=== PATIENT | female | born 1965 | race Caucasian/White ===

== ENCOUNTER 2019-08-06 08:50 | Inpatient (IN) | payer OTHER ==
[2019-08-06] VITALS (11 sets, daily range): BP systolic 96–128; BP diastolic 49–79
[~2019-08-06] VITALS: Ht 160 cm; Wt 85.7 kg
--- NOTE | ~2019-08-06 | HC ---
[facility] [place] [address] CONSULTATION Name: LUIS A VILLALPANDO Room #: 349-I ADM IN M.R.#: [id number] Admission: 08/06/19 Attend Phys: Jose Antonio Diallo MD Discharge: Date of : 67 Report #: [id number] THIS REPORT FOR: //name// CC: Jatinder Love FAM unknown Jose Antonio Diallo REASON FOR CONSULTATION: Elevated creatinine. REASON FOR PRESENTATION: Abscess on the buttock. HISTORY OF PRESENT ILLNESS: This is a 53-year-old with past medical history of diabetes mellitus. This seems to be out of control with the most recent hemoglobin A1c of 13.8. She is also known to have been born with 1 kidney. She has not seen a kidney specialist in the past, but was told 3 years ago that she had 1 kidney based on an imaging that was obtained by her primary care physician. She also tells me that she has taken nonsteroidal anti-inflammatory medications for almost 10 years and stopped 3 years ago. She presented with the above-mentioned complaint and was found to have a significant gluteal abscess. Surgical consultation was obtained and this has been drained. The patient's creatinine on presentation was 3.2 and had risen to 3.7. I am being consulted to manage her chronic kidney disease. PAST MEDICAL HISTORY: 1. Diabetes mellitus. 2. Solitary kidney. 3. Hyperlipidemia. 4. Coronary artery disease. 5. Status post bilateral carpal tunnel surgery. 6. Status post bilateral ulnar nerve release. ALLERGIES: None. OUTPATIENT MEDICATIONS: 1. Atorvastatin. 2. Levemir insulin. 3. Gabapentin. FAMILY HISTORY: Her mother was alcoholic. Her dad was diabetic and of coronary artery disease. SOCIAL HISTORY: She is a smoker. She has no children. 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 REVIEW OF SYSTEMS: GENERAL: Significant for fever, chills and weakness. CARDIOVASCULAR: No chest pain or palpitation. [facility] [address] [place] [address] CONS[facility]ATION [facility] Room #: 349-I ADM IN [facility]#: [id number] Admission: 08/06/19 Attend Phys: Jose Antonio Diallo MD Discharge: Date of : 67 Report #: [id number] PULMONARY: No cough or hemoptysis. GASTROINTESTINAL: No nausea or vomiting. GENITOURINARY: No frequency, no urgency. NEUROLOGICAL: As per the history of present illness. SKIN: As per the history of present illness. PHYSICAL EXAMINATION: GENERAL: She is alert and oriented. VITAL SIGNS: Temperature is 37.2, respiratory rate is 24, and blood pressure is 106/59. HEAD AND NECK: No jugular venous distention. CHEST: No crackles. CARDIOVASCULAR: No rub detected. ABDOMEN: Soft and nontender. LOWER EXTREMITIES: No edema. Dressing applied over the right gluteal area. LABORATORY DATA: Reviewed. White blood cell count is 22.3 with significant bands at 16%. Sodium is 137, potassium is 4.4, BUN is 65, and creatinine is 3.7. Magnesium is 1.7. ASSESSMENT, IMPRESSION, AND PLAN: 1. Chronic kidney disease. 2. Solitary kidney. 3. Perirectal abscess. 4. Post-incision and drainage of her rectal abscess. 5. Leukocytosis. 6. I will start the appropriate investigation for the patient's elevated creatinine; however, it does look like that she has lived with a solitary kidney for some time. On top of that, she has been using chronic nonsteroidal anti-inflammatory medications along with poorly controlled diabetes mellitus. 7. Continue with IV fluid. 8. Check vancomycin level. 9. Blood sugar control. 10. Post-incision and drainage of her abscess. 11. We will continue to follow. By: [id number] Margot Dalton MD /nt
[2019-08-06] MEDS ORDERED: HUMALOG100 UNIT/1 SUBQ (08:59)
[2019-08-06] MEDS ORDERED: NEURONTIN100 MG PO (08:59)
[2019-08-06] MEDS ORDERED: LIPITOR 20 MG T20 M1 PO (09:00)
[2019-08-06] MEDS ORDERED: LEVEMIR100 UNIT/2 SUBQ (09:01)
[2019-08-06 09:28] LABS: URINE BILIRUBIN NEGATIVE (Negative); URINE BLOOD 1+ (Negative); URINE CLARITY CLEAR; URINE COLOR YELLOW; URINE GLUCOSE-RANDOM* 3+ (Negative); URINE KETONES NEGATIVE (Negative); URINE LEUKOCYTES-REFLEX NEGATIVE (Negative); URINE NITRITE-REFLEX NEGATIVE (Negative); URINE PROTEIN (DIPSTICK) 1+ (Negative); URINE SPECIFIC GRAVITY 1.015 (1.005-1.035); URINE UROBILINOGEN 0.2 E.U./dl (0.2-1.0)
[2019-08-06 09:30] LABS: ABSOLUTE NEUTROPHILS 17.6 thou/uL (1.4-8.2); BASOPHILS 0.5 % (0.0-2.0); EOSINOPHILS 0.3 % (0.0-3.0); HEMATOCRIT 46.1 % (37.0-47.0); LYMPHOCYTES 6.7 % (24.0-44.0); MCHC 32.4 g/dL (28.0-37.0); MCV 89.3 fL (80.0-100.0); MONOCYTES 4.4 % (1.0-8.0); PLATELET COUNT 308 thou/uL (150-400); POLYS 88.1 % (36.0-66.0); RBC 5.16 mil/uL (4.20-5.00); RDW 15.8 % (10.5-14.5)
[2019-08-06 09:45] LABS: CALCIUM 10.7 mg/dL (8.5-10.1); CREATININE 3.2 mg/dL (0.6-1.0); POTASSIUM 4.9 mmol/L (3.5-5.1)
[2019-08-06 10:40] LABS: CASTS None Seen /LPF (None Seen); CRYSTALS None Seen /LPF (None Seen); SQUAMOUS >10 Many /LPF (0-3)
[2019-08-06 10:41] LABS: URINE WBC-REFLEX 6-15 Few /HPF (0-5)
[2019-08-06 10:43] LABS: URINE RBC 0-2 Rare /HPF (0-2); YEAST-REFLEX Present (None Seen)
[2019-08-06 12:14] LABS: CHOLESTEROL 86 mg/dL (<200); HDL CHOLESTEROL 24 mg/dL (>40); LDL CHOLESTEROL 39 mg/dL (<100); TC:HDL 3.6 Ratio (Not establshd); TRIGLYCERIDE 118 mg/dL (<150); VLDL 24 mg/dL (<40)
[2019-08-07 00:07] LABS: GLYCOHEMOGLOBIN (HGB A1C) 13.8 % (4.8-5.6)
--- NOTE | 2019-08-07 00:58 | NUR ---
PATIENT WAS A NEW ADMISSION TO THE UNIT TODAY SHORTLY AFTER SHIFT CHANGE. SHE ARRIVED VIA BALDO BED FROM POST OP. PATIENT IS ALERT AND ORIENTED AND ABLE TO PARTICIPATE IN CARE. INSULIN GTT STARTED BEFORE HER ARRIVAL HERE. SURGICAL WOUND REMAINS CLEAN, DRY, AND INTACT. PATIENTS VITAL SIGNS REMAIN STABLE. PATIENT IS ON LOW LEVEL OXYGEN WITH NO PROBLEMS BREATHING EVIDENCED BY ASSESSMENT AND SPOT OXYGENATION CHECKS. NURSE TO CLOSELY MONITOR BLOOD PRESSURE/BREATHING STATUS/PAIN AND TITRATE GTT ACCORDINGLY. PATIENT ADMISSION COMPLETED WITH CARE PLAN INITIATED.
[2019-08-07 01:52] LABS: URINE BILIRUBIN NEGATIVE (Negative); URINE BLOOD 3+ (Negative); URINE CLARITY CLOUDY; URINE COLOR YELLOW; URINE GLUCOSE-RANDOM* 3+ (Negative); URINE KETONES NEGATIVE (Negative); URINE LEUKOCYTES 1+ (Negative); URINE NITRITE NEGATIVE (Negative); URINE PROTEIN (DIPSTICK) 2+ (Negative); URINE UROBILINOGEN 0.2 E.U./dl (0.2-1.0)
[2019-08-07 02:14] VITALS: BP 106/56
[2019-08-07 02:21] LABS: SQUAMOUS 0-3 Few /LPF (0-3); URINE WBC 6-15 Few /HPF (0-5)
[2019-08-07 02:22] LABS: CASTS None Seen /LPF (None Seen); CRYSTALS None Seen /LPF (None Seen); MUCUS 0-3 Light strn/LPF (None Seen); URINE RBC >20 Many /HPF (0-2); YEAST Present (None Seen)
[2019-08-07 05:01] VITALS: BP 108/56
--- NOTE | 2019-08-07 05:33 | NUR ---
PATIENT IS PROGRESSING SLOWLY IN HER CARE PLAN. VITAL SIGNS STABLE WITH PATIENT HAVING NO COMPLAINTS OF NAUSEA. PATIENT DID COMPLAIN OF PAIN IN RIGHT BUTTOCK SURGICAL SITE WHICH WAS MANAGED EFFECTIVELY THROUGH MEDICATION. FULLY ALERT AND ORIENTED, PATIENT WAS ABLE TO CALL FOR NEEDS AND PARTICIPATE IN CARE. INSULIN GTT TO GOOD AFFECT, WITH HOURLY BLOOD SUGARS TAKEN PER PROTOCOL. PATIENT WAS ABLE TO TRANSFER TO BEDSIDE COMMODE WITH ASSISTANCE INCIDENT FREE. SHE IS CONSIDERED A HIGH FALL RISK.
[2019-08-07 07:07] LABS: HEMATOCRIT 36.6 % (37.0-47.0); MCH 28.1 pg (26.0-34.0); MCHC 31.8 g/dL (28.0-37.0); MCV 88.4 fL (80.0-100.0); RBC 4.14 mil/uL (4.20-5.00); RDW 15.5 % (10.5-14.5); WBC 22.3 thou/uL (4.0-11.0)
[2019-08-07 07:11] LABS: HEMOGLOBIN 11.6 gm/dL (12.0-15.0); PLATELET COUNT 230 thou/uL (150-400)
[2019-08-07 07:15] VITALS: BP 106/59
[2019-08-07 08:08] LABS: ALBUMIN 1.7 g/dL (3.4-5.0); CALCIUM 8.7 mg/dL (8.5-10.1); CREATININE 3.7 mg/dL (0.6-1.0); PHOSPHORUS 4.1 mg/dL (2.5-4.9); POTASSIUM 4.4 mmol/L (3.5-5.1)
[2019-08-07 08:16] LABS: ABSOLUTE NEUTROPHILS 19.4 thou/uL (1.4-8.2); PLATELET ESTIMATE NORMAL
[2019-08-07 08:17] LABS: ANISOCYTOSIS SLIGHT
--- NOTE | 2019-08-07 08:50 | HC ---
[facility] [place] [address] CONSULTATION Name: LUIS A VILLALPANDO Room #: 349-I ADM IN M.R.#: [id number] Admission: 08/06/19 Attend Phys: Jose Antonio Diallo MD Discharge: Date of : 67 Report #: [id number] THIS REPORT FOR: //name// CC: Jatinder Love FAM unknown Jose Antonio Diallo DATE OF SERVICE: 08/06/2019 ENDOCRINE CONSULTATION NOTE CONSULTING PHYSICIAN: Dr. Nishi Bertrand. REASON FOR CONSULTATION: Severe hyperglycemia, uncontrolled type 2 diabetes mellitus. HISTORY OF PRESENT ILLNESS: This is a 53-year-old female patient whose medical background is significant for type 2 diabetes mellitus as well as chronic kidney disease, who presented today with ongoing difficulties relating to a right buttock abscess that she has suffered with worsening pain, fever and chills over the past 3 weeks. She notes that she had it drained in some capacity 2 weeks ago and had been placed on an antibiotic course, but then the issues recurred and persisted at worse grade to where she presented here. The patient had diabetes mellitus for over 10 years, and is currently maintained on a regimen of Levemir insulin 50 units q.p.m. and Humalog insulin 20 units t.i.d. a.c. She is not currently on any oral antidiabetic agents and explains that these were stopped due to her progressive kidney dysfunction. She has not followed with Nephrology, but notes that they would see her every time she is in the hospital and that she was told she might need dialysis. The patient has peripheral neuropathy as well and takes gabapentin for that. She is not aware of difficulties pertaining to diabetic retinopathy. The patient does have a history of CAD and is status post [place]. She is also hyperlipidemic and is maintained on atorvastatin therapy. REVIEW OF SYSTEMS: CONSTITUTIONAL: Fever and chills, but not body weight changes. She had worsening appetite. HEENT: Negative for sinus pain, ear drainage. PULMONARY: Occasional shortness of breath and cough, but no hemoptysis. CARDIAC: No major difficulties with chest pain, palpitations, but she has intermittent lower extremity swelling. GASTROINTESTINAL: Abdominal discomfort, occasional nausea, constipation. NEUROLOGY: Negative for loss of consciousness, seizure activity, major frequent headaches, but noted for baseline issues with diabetic neuropathy. SKIN: Noted for right buttock abscess associated with pain and induration as [facility] [address] [place] [address] CONSULTATION Name: [facility] Room #: 349-I ADM IN M.R.#: [id number] Admission: 08/06/19 Attend Phys: Jose Antonio Diallo MD Discharge: Date of : 67 Report #: [id number] noted above. PSYCHIATRIC: Somewhat dysphoric mood and anxiety, occasional sleep difficulties. Otherwise, review of systems was noncontributory other than those mentioned in the HPI. PAST MEDICAL HISTORY: 1. Type 2 diabetes mellitus. 2. Diabetic nephropathy. 3. Advanced chronic kidney disease. 4. Peripheral diabetic neuropathy. 5. Coronary artery disease, status post [place]. 6. Hyperlipidemia. ALLERGIES: No known drug allergies. ACTIVE OUTPATIENT MEDICATIONS: Include Levemir insulin 50 units at bedtime, Humalog insulin 20 units t.i.d. a.c., gabapentin 100 mg t.i.d., atorvastatin 20 mg at bedtime. FAMILY HISTORY: Noncontributory. SOCIAL HISTORY: The patient smokes more than 2 packs per day. Denies use of alcohol or illicit drugs. She does not have children. PHYSICAL EXAMINATION: GENERAL: female patient who appears in pain, distress, uncomfortable, sleeping on her side. VITAL SIGNS: Blood pressure is 107/57 mmHg, heart rate is 73 beats per minute, respirations 20 per minute, temperature 36.9 degrees. CONSTITUTIONAL: The patient appears uncomfortable, in pain, lying on her side. HEENT: Anicteric sclerae. Intact extraocular motions. NECK: Supple without JVD, carotid bruits or lymphadenopathy. I do not appreciate thyromegaly. CHEST: Noted for moderate air entry bilaterally with scattered rales, rhonchi bilaterally, but no crackles. HEART: Regular rate and rhythm without murmurs or gallops. ABDOMEN: Soft and lax. No guarding. Active bowel sounds. EXTREMITIES: Lower extremity exam, trace ankle edema. No skin breaks, ulcerations. Sensation to light touch is slightly diminished. NEUROLOGIC: Awake, alert and oriented to time, place and person. The remainder of her examination is nonfocal other than for sensory deficits. PSYCHIATRIC: Pleasant, appropriate, interactive, appears in pain. LABORATORY RESULTS: Blood glucose on arrival was reportedly more than 500 mg/dL, recorded by blood draw at 561 mg/dL; her followup blood glucose after IV [facility] [address] [place] [address] CONSULTATION Name: [facility] Room #: 349-I ADM IN M.R.#: [id number] Admission: 08/06/19 Attend Phys: Jose Antonio Diallo MD Discharge: Date of : 67 Report #: [id number] insulin was 390 mg/dL. Otherwise, sodium 132, potassium 4.9, chloride 98, CO2 of 21, anion gap 13, BUN 58, creatinine 3.2, glucose 561, calcium 10.7, EGFR 15, lactic acid 2.0. White blood count 20, hemoglobin 15, hematocrit 46.1, platelets 308. Hemoglobin A1c was ordered and is pending. ASSESSMENT AND PLAN: 1. Type 2 diabetes mellitus. As noted above, the patient presented in severe hyperglycemia under conditions of cellulitis, pain and stress. However, from my conversation with her, it appears that she has indeed been poorly controlled at baseline as well. Hemoglobin A1c is currently pending and will shed more light on her overall glycemic outlook over the past few months. The patient is being planned for an I and D procedure under general anesthesia by Dr. Love. I agree with his desire to have her blood glucose values as well controlled as possible preoperatively for the best results possible. That said, I would start the patient on IV insulin. She had already received 1 intravenous dose of insulin at 10 units in the ER and had improved her blood glucose significantly since then. I would like to start her on IV insulin at a starting rate of 5 units of insulin per hour with hourly monitoring and further rate adjustments based on her blood glucose values. Once the patient is postoperative and is safely stable, she will be transitioned to subcutaneous insulin as per her recorded insulin needs. The patient was counseled about the importance of achieving and maintaining adequate glycemic control in order to prevent short term and long term care administrator diabetic complications, which she seems to understand well. 2. Coronary artery disease. The patient has had a myocardial infarction in the past. I stressed the importance of adequate blood glucose, blood pressure and lipid control in order to prevent such occurrences in the future. 3. Hyperlipidemia. The patient is maintained on lipid-lowering therapy in the form of atorvastatin 20 mg daily. This is to continue. I will obtain a lipid panel to assess the adequacy of this regimen. I certainly appreciate this consultation by Dr. Bertrand. <ELECTRONICALLY SIGNED> By: Mady Carlson MD 08/07/19 0850 [id number] [id number] Mady Carlson MD /nt
[2019-08-07 11:19] LABS: URINE BILIRUBIN NEGATIVE (Negative); URINE BLOOD 2+ (Negative); URINE CLARITY CLOUDY; URINE COLOR YELLOW; URINE GLUCOSE-RANDOM* 2+ (Negative); URINE KETONES NEGATIVE (Negative); URINE LEUKOCYTES 2+ (Negative); URINE NITRITE NEGATIVE (Negative); URINE PROTEIN (DIPSTICK) 2+ (Negative); URINE UROBILINOGEN 0.2 E.U./dl (0.2-1.0)
[2019-08-07 11:28] LABS: CASTS None Seen /LPF (None Seen); CRYSTALS None Seen /LPF (None Seen); SQUAMOUS 0-3 Few /LPF (0-3); URINE RBC >20 Many /HPF (0-2); URINE WBC 6-15 Few /HPF (0-5)
[2019-08-07 11:29] LABS: BACTERIA 1-9 Few /HPF (None Seen)
[2019-08-07 14:24] VITALS: BP 106/59
--- NOTE | 2019-08-07 15:38 | NUR ---
PT REPORTS SHARP INTERMITTENT PAIN TO PERIRECTAL SITES...MEDICATED WITH OXY IR AND TYLENOL WITH FAIRLY GOOD RELIEF OBTAINED..
[2019-08-07 16:58] VITALS: BP 98/55
[2019-08-07 19:13] VITALS: BP 104/61
[2019-08-08 03:49] VITALS: BP 142/79
--- NOTE | 2019-08-08 04:12 | NUR ---
ASSUMED CARE OF PT AT 1900. A&Ox4, COOPERATIVE. VS STABLE. DRESSING CHANGE AND PACKING COMPLETED IN BOTH PERIRECTAL AND GROIN AT START OF SHIFT W/ DAY RN. TOLERATED WITH MODERATE PAIN, MEDS GIVEN W/ PARTIAL RELIEF. PT WAS ABLE TO REST BUT WOKE AT 0345 IN TEARS RATING PAIN 9/10, MEDS GIVEN AGAIN W/ PARTIAL RELIEF. O2 SAT'S WNL ON RA. GLUCOSE WAS 226 AT 0, 10U PER SS GIVEN. CURRENTLY RESTING. PROGRESSING TOWARDS POC GOALS.
[2019-08-08 05:42] LABS: HEMATOCRIT 35.8 % (37.0-47.0); HEMOGLOBIN 11.3 gm/dL (12.0-15.0); MCH 28.1 pg (26.0-34.0); MCHC 31.4 g/dL (28.0-37.0); MCV 89.5 fL (80.0-100.0); RDW 15.7 % (10.5-14.5); WBC 15.7 thou/uL (4.0-11.0)
[2019-08-08 06:17] LABS: ALBUMIN 1.8 g/dL (3.4-5.0); CALCIUM 8.2 mg/dL (8.5-10.1); CREATININE 4.3 mg/dL (0.6-1.0); PHOSPHORUS 4.9 mg/dL (2.5-4.9); POTASSIUM 4.7 mmol/L (3.5-5.1)
[2019-08-08 07:11] VITALS: BP 130/77
--- NOTE | 2019-08-08 15:30 | NUR ---
Case opened to follow for dc planning. [employer] visited with the pt at bedside. She is a&ox4 and was independent with gait and adl's prior to admission. She and her spouse have seperated and may be ;however they remain very good friends and supports for each other. She lives in a friends basement with 12 steps down. 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 Her spouse provides her transportation. She smokes 2 packs a day. She utilizes [facility] and gets her insulin through one of their programs with pickup at her local [employer]. She reports that she helps her spouse setup his meds and has done iv atb before as well as wound care. She feels he will be able to help her with wound care and she can f/u with [facility] as recommended. [facility] referral initiated and lyssa application discussed. Will follow along and help the pt with scripts at [facility]. Awaiting imput from ID regarding her antibiotic needs. She is currently on IV zosyn and vanco. Ratliff placed today d/t urinary retention. The pt reports she does have a cane and walker if needed. She does not check her blood sugar often but states her spouse can do that. CM role introduced. Will follow along to assist with scripts and possible IV atb at [facility].
--- NOTE | 2019-08-08 16:02 | NUR ---
PATIENT WOUND CARE PERFORMED PER ORDERS. PATIENT URINATING SMALL AMOUNTS FREQUENTLY. ABDOMEN WAS DISTENDED, BLADDER SCAN PERFORMED PER DR. ROWE INSTRUCTIONS. PT FOUND TO HAVE >1L IN BLADDER, ABLE TO VOID ONLY 200ML POST SCAN. REPORTED TO DR. ROWE, AGUILERA PLACED PER PROVIDER ORDER. PATIENT URINE OUTPUT INCREASED POST AGUILERA PLACEMENT. PATIENT REPORTS PAIN PARTIALLY MANAGED WITH MEDS. WOUND CARE PROVIDER EVALUATED PATIENT WOUNDS AND ORDERS PLACED FOR TOPICAL MEDICATION. FALL PRECAUTIONS IN PLACE, PATIENT CALLS FOR ASSISTANCE. UP WITH MODERATE ASSIST TO BEDSIDE COMMODE.
--- NOTE | 2019-08-08 16:55 | NUR ---
WOUND CONSULT; ROUNDING WITH DR CHARLES. I WAS NOT ABLE TO ASSESS THE WOUNDS,BUT DR CHARLES WAS. SEE DR CHARLES'S NOTE AND ORDERS...NOTING FOLLOWS
[2019-08-08 16:57] VITALS: BP 114/60
[2019-08-08 19:42] VITALS: BP 122/68
--- NOTE | 2019-08-08 22:26 | HC ---
[facility] [place] [address] CONSULTATION Name: LUIS A VILLALPANDO Room #: 349-I ADM IN M.R.#: [id number] Admission: 08/06/19 Attend Phys: Jose Antonio Diallo MD Discharge: Date of : 67 Report #: [id number] THIS REPORT FOR: //name// CC: Jatinder Love FAM unknown Jose Antonio Diallo DATE OF SERVICE: 08/07/2019 INFECTIOUS DISEASE CONSULTATION. REASON FOR CONSULTATION: I was asked to evaluate concerning perirectal abscess, right groin abscess in the setting of diabetes. HISTORY OF PRESENT ILLNESS: A 53-year-old with solitary kidney, chronic kidney disease, diabetes, tobacco use, who developed a right groin abscess several weeks ago. Seen in the Emergency Room with incision and drainage performed, placed on oral antibiotic. Did not improve. Several weeks ago developed a right buttock wound abscess that required incision and drainage in the Emergency Room. Placed on doxycycline. Did not improve. Had increased pain and swelling. She has had low-grade fever and chills. No nausea, vomiting or diarrhea. Presents now for further evaluation. Taken to surgery by Dr. Jatinder Love yesterday where incision and drainage of perirectal abscess and debridement of necrotic soft tissue. Blood glucose levels have been high. Creatinine remains around 3. White count has been elevated around 20. ALLERGIES: None known. MEDICATIONS: As noted on MAR including vancomycin and Zosyn. Prior to her admission, she was on insulin, gabapentin, Lipitor, doxycycline. PAST MEDICAL HISTORY: Solitary kidney, diabetes. FAMILY HISTORY: Noncontributory. SOCIAL HISTORY: Smoker of cigarettes, minimal alcohol use. REVIEW OF SYSTEMS: A 10-point review of system was negative other than what has been described above. PHYSICAL EXAMINATION: GENERAL: Afebrile and hemodynamically stable. Obese, alert, cooperative, pleasant, in no acute distress. GENITALIA: Right perianal abscess cavity had been incised and drained and is now being packed. She had mild surrounding swelling and tenderness. Mild erythema. Also had a lesion to her right groin, which was packed. No other [facility] [address] [place] [address] CONSULTATION Name: [facility] Room #: 349-I ADM IN M.R.#: [id number] Admission: 08/06/19 Attend Phys: Jose Antonio Diallo MD Discharge: Date of : 67 Report #: [id number] vulvar lesions. EYES: Without scleral icterus. MOUTH: Without mucositis. NECK: No adenopathy palpable. LUNGS: Clear. HEART: Regular, without murmur, gallop or rub. ABDOMEN: Soft, nontender, no hepatosplenomegaly or mass. EXTREMITIES: Without clubbing, cyanosis or edema. NECK: Without swelling, adenopathy or thyromegaly. NEUROLOGIC: Cranial nerves were intact. Strength in upper and lower extremities was normal and symmetric. Decreased sensation in her toes bilaterally. PSYCHIATRIC: Mood was normal. LABORATORY STUDIES: Reviewed, noting creatinine 3.7. Hemoglobin 11.6, WBC 22.3, 16% bands. Urinalysis, many rbc's, a few wbc's, yeast present. Cultures of blood and abscess cavity currently pending. CT of the pelvis reviewed. IMPRESSION: A 53-year-old diabetic with right gluteal perirectal abscess, suspecting a polymicrobial growth. She has a fair amount of surrounding tissue damage. Also, has a lesion to her right groin, which is being packed. She has chronic kidney disease and a solitary kidney along with diabetes and tobacco use. RECOMMENDATIONS: Continue combination IV antibiotic therapy. Await culture results. Continue wound care and diabetic management. Duration and final choice of antibiotics will depend on culture results. <ELECTRONICALLY SIGNED> By: Kai Malcolm MD 08/08/19 2226 [id number] Kai Malcolm MD /nt
[2019-08-09 03:18] VITALS: BP 151/86
[2019-08-09 05:45] LABS: HEMATOCRIT 34.4 % (37.0-47.0); HEMOGLOBIN 11.1 gm/dL (12.0-15.0); MCH 28.7 pg (26.0-34.0); MCHC 32.4 g/dL (28.0-37.0); MCV 88.4 fL (80.0-100.0); RBC 3.89 mil/uL (4.20-5.00); RDW 15.6 % (10.5-14.5); WBC 11.3 thou/uL (4.0-11.0)
[2019-08-09 06:02] LABS: ALBUMIN 1.7 g/dL (3.4-5.0); CALCIUM 8.8 mg/dL (8.5-10.1); CREATININE 3.7 mg/dL (0.6-1.0); PHOSPHORUS 4.7 mg/dL (2.5-4.9); POTASSIUM 4.5 mmol/L (3.5-5.1)
--- NOTE | 2019-08-09 06:16 | NUR ---
ASSUMED CARE OF PT AT 1900. A&Ox4. VS STABLE, ST 103-105 ON TELEMETRY. C/O PAIN 8 TIMES OVER NOC WITH MORE PAIN THAN PREVIOUS NOC. PT RATED PAIN 10.5/10. PT C/O PAIN WITH ANY MOVEMENTS INCLUDING WHEN AGUILERA BAG WAS MOVED AND WHEN HER HAIR WAS MOVED. SHE WAS ALSO WEAKER THAN PREVIOUS NOC AND COULD NOT BLOCK SORTER HER OWN WATER MUG TONIGHT. DRESSING CHANGED PRN OVER PERIRECTAL WOUND. CONTINUES TO HAVE MODERATE AMOUNT OF BROWN-GREEN[place] DRAINAGE. AGUILERA CATH PATENT, MORE UOP DOCUMENTED. PT WAS AWAKE MOST OF THIS SHIFT. SHE SLEPT FOR 1 HOUR AROUND MIDNIGHT AND HAS BEEN SLEEPING NOW FOR 1 HOUR. SLOW PROGRESSION TOWARDS POC GOALS. WILL CONTINUE TO PROVIDE CARE AND MONITOR.
[2019-08-09 07:19] VITALS: BP 133/82
--- NOTE | 2019-08-09 10:30 | NUR ---
WOUND CARE NOTE; DR GOMEZ HERE EARLIER THIS AM, DR REMOVED PACKING FROM BUTTOCK AND GROIN WOUND, LARGE AMT SEROSANGUINEOUS TANNISH DRAINAGE ON ABD PAD, WOUND CARE PREFORMED W/ ASSIST OF SHEET FINISHERANA MEZA, LIDOCAINE 4% ~10CC INSTILLED IN PERIRECTAL WOUND PRIOR TO WOUND CARE, PT STATES MUCH LESS PAIN W/ USE OF LIDOCAINE, STATES MINIMAL TO NO PAIN WHEN REMOVING PACKING, PAIN MORE WHEN WOUND REPACKED, SOME YELLOW SLOUGH IN PERIRECTAL WOUND, REDDISH PINK VIABLE TISSUE PRESENT ALSO, REPACKED W/ 1/4% ST [place]AK[place], COVERED W/ ABD PAD AND DISPOSABLE PANTIES APPLIED PT STATES TAPE ON SKIN IRRITATING, NO PAIN W/ GROIN WOUND, WOUND PINK, VIABLE TISSUE, HEALING RECOMMENDATIONS CONT WOUND CARE ORDERED, SUGGEST INSTILLING LIDOCAINE 15 MIN PRIOR TO PERIRECTAL WOUND CARE, AND USE DISPOSABLE PANTIES TO HOLD DRSG IN PLACE, SHEET FINISHER AWARE
--- NOTE | 2019-08-09 12:57 | HC ---
[facility] [place] [address] CONSULTATION Name: LUIS A VILLALPANDO Room #: 349-I ADM IN .R.#: [id number] Admission: 08/06/19 Attend Phys: Jose Antonio Diallo MD Discharge: Date of : 67 Report #: [id number] THIS REPORT FOR: //name// CC: Jatinder Love FAM unknown Jose Antonio Diallo DATE OF SERVICE: 08/07/2019 CHIEF COMPLAINT: Perirectal abscess. HISTORY OF PRESENT ILLNESS: This is a 53-year-old female patient who was admitted through the Emergency Department. She was originally seen at [facility] for a boil on her buttocks. She was treated with antibiotics, it worsened. She has presented here. She has had incision and drainage performed by Dr. Love. I have been asked to see her with regard to wound care. The patient states that she has a history of chronic kidney disease and uncontrolled diabetes. She has no insurance and has not been able to afford medications and goes to [facility] for medications. PAST MEDICAL HISTORY: Positive for diabetes mellitus, chronic renal insufficiency, asthma, hyperlipidemia, history of prior PR and single kidney since . ALLERGIES: No known drug allergies. MEDICATIONS: Insulin, Humalog, gabapentin, atorvastatin, and Levemir. SOCIAL HISTORY: The patient admits to occasional alcohol use. She smokes 2-1/2 packs of cigarettes per day for 40 years, currently an everyday smoker. She is , accompanied by her . FAMILY HISTORY: Noncontributory. REVIEW OF SYSTEMS: CONSTITUTIONAL: The patient denies fever, chills, or weight loss. ENT: The patient denies earache, nasal drainage or sore throat. EYES: The patient denies visual changes, redness, or drainage. CARDIOVASCULAR: The patient denies chest pain, palpitations or diaphoresis. PULMONARY: The patient denies cough or shortness of breath. GASTROINTESTINAL: The patient denies nausea, vomiting, diarrhea or abdominal pain. ORTHOPEDIC: The patient does note pain in her groin area and perirectal region. PSYCHIATRIC: The patient denies anxiety, irritability or depression. ENDOCRINE: The patient denies heat or cold intolerance, polydipsia, polyphagia, polyuria. [facility] [address] [place] [address] CONSULTATION Name: [facility] Room #: 349-I ADM IN M.R.#: [id number] Admission: 08/06/19 Attend Phys: Jose Antonio Diallo MD Discharge: Date of : 67 Report #: [id number] Other systems in a 14-point review of systems are negative. PHYSICAL EXAMINATION: VITAL SIGNS: At this time include temperature 98.0, pulse 99, respiratory rate 18, blood pressure 104/61. GENERAL: This is a somewhat chronically ill-appearing female patient, who appears to be in minimal distress. HEENT: Head normocephalic. Nose and throat are clear. NECK: Supple. ABDOMEN: Soft. Bowel sounds present. There is the genitourinary region demonstrates a small abscess cavity in the right inguinal region. It was fairly clean and granulating, minimally tender. There was a larger defect in the right perirectal region, status post incision and drainage. There is some tenderness and some drainage and some odor present. The hernandez and base appear to be clean. NEUROLOGIC: The patient is alert and oriented and appropriate. LABORATORY DATA: Include white blood cell count is 22.3 with a hemoglobin of 11.6, hematocrit of 36.6. Sodium 137, potassium 4.7, chloride 104, CO2 of 17, BUN 69, creatinine 1.3, glucose 272, it was 600 on admission. Albumin is quite low at 1.8. CLINICAL IMPRESSION: 1. Perirectal and a right inguinal abscesses, status post incision and drainage. 2. Uncontrolled diabetes mellitus with hyperglycemia. 3. Hypertension. 4. Hyperlipidemia. 5. Severe protein-calorie malnutrition, albumin 1.8. RECOMMENDATIONS: At this point in time, we will recommend packing the right ischial wound with quarter strength Dakin's moist gauze and covered with ABD twice daily. Recommend iodoform gauze packing to the groin once daily. She will need ongoing antibiotic therapy, nutritional support for wound healing. She will clearly need help with glycemic control. All questions have been answered. I appreciate being asked to see her in consultation. <ELECTRONICALLY SIGNED> By: Erick Segundo MD 08/09/19 [id number] Erick Segundo MD /nt
--- NOTE | 2019-08-09 13:59 | NUR ---
WOUND CARE F/U; ROUNDING WITH DR DONAVAN CHARLES. THE PATIENTS DRESSING WERE CHANGED PRIOR TO OUR ASSESSMENT. THE DRESSINGS ARE CLEAN DRY AND INTACT. THE PATIENT IS COMFORTABLE WITH NO COMPLAINTS OR REQUESTS. VSS TODAY. THE PATIENTS IS PRESENT. DR CHARLES REVIEWED HER POC AND ANSWERED QUESTIONS. CONT. CURRENT WOUND PLAN OF CARE. DISCUSSED WITH STAFF
--- NOTE | 2019-08-09 14:56 | NUR ---
SW reviewed chart and spoke with nursing and attending physician. Pt is slowly progressing towards goals for discharge. Discharge home is anticipated in 1-2 days. SW met with pt at bedside to discuss discharge plan. Pt reports she goes to the [facility] [place]. SW explained that ID will recommend course of abx: IV v. PO. Pt states she has done home IV abx in the past. SW explained that option could be outpatient infusion at [facility]. Pt verbalized understanding. Jenn met with pt. Pt is not eligible for Medicaid. Plan is for pt to discharge home when medically stable. SW is following to assist as needed with discharge planning.
[2019-08-09 16:04] VITALS: BP 130/60
--- NOTE | 2019-08-09 16:37 | NUR ---
Assumed care approx. 0700 this AM. Dressing changes completed with v belt mold assembler and curer this AM. Pt has complained of right shoulder pain and it feeling "/numb" the past [address] Diallo notified and came to assess the issue per patient and patient's request. A shoulder x-ray has been completed with no fracture or dislocation noted, just mild degenerative changes per the x-ray report. Oxycodone and scheduled tylenol given for pain management. Maintenance fluids infusing per orders. Ratliff catheter intact with adequate output. Blood sugar 65 at lunch time this AM due to insulin administration with no breakfast consumption after. After patient drank her ensure, her blood sugar normalized. Pt changed from med-surg tele to med-surg status-cardiac rehab nurse dc'd. No other new acute changes this shift. Pt slowly progressing toward plan of care goals.
[2019-08-09 17:08] LABS: COMPLEMENT-C4 30 mg/dL (14-44)
[2019-08-09 19:12] VITALS: BP 144/76
[2019-08-09 23:07] LABS: COMPLEMENT-C3 126 mg/dL (82-167)
[2019-08-10 03:11] VITALS: BP 159/89
--- NOTE | 2019-08-10 05:16 | NUR ---
PATIENT IS ALERT AND ORIENTED. PATIENT IS SBA. PATIENTS DRESSING WAS CHANGED TWICE THIS SHIFT. PATIENT IS ON ROOM AIR. PAIN IS CONTROLLED WITH PAIN MEDICAITON. MIKEL HAS A AGUILERA. PATIENT IS ACHS ACCUCHECKS. PATIENTS LBM WAS THE 9TH. PATIENT IS RESTING COMFORTABLY IN BED. WCM.
[2019-08-10 05:47] LABS: ALBUMIN 1.8 g/dL (3.4-5.0); CALCIUM 8.7 mg/dL (8.5-10.1); CREATININE 3.3 mg/dL (0.6-1.0); PHOSPHORUS 4.7 mg/dL (2.5-4.9); POTASSIUM 4.8 mmol/L (3.5-5.1)
[2019-08-10 05:52] LABS: HEMATOCRIT 34.2 % (37.0-47.0); HEMOGLOBIN 11.2 gm/dL (12.0-15.0); MCH 29.1 pg (26.0-34.0); MCHC 32.8 g/dL (28.0-37.0); MCV 88.7 fL (80.0-100.0); RBC 3.86 mil/uL (4.20-5.00); RDW 15.8 % (10.5-14.5); WBC 8.3 thou/uL (4.0-11.0)
[2019-08-10 07:42] VITALS: BP 150/87
[2019-08-10] MEDS ORDERED: FLOMAX0.4 MG PO (12:24)
[2019-08-10] MEDS ORDERED: AUGMENTIN 500-1 EACH PO (12:24)
[2019-08-10] MEDS ORDERED: OXYCODONE HCL 55 MG PO (12:27)
[2019-08-10] MEDS ORDERED: SODIUM BICARBO650 M3 PO (12:28)
[2019-08-10] MEDS ORDERED: LANTUS SUBQ (12:29)
[2019-08-10] MEDS ORDERED: HUMALOG100 UNIT/1 SUBQ (12:30)
[2019-08-10 12:36] VITALS: BP 150/87
[2019-08-10 14:11] VITALS: BP 150/87
--- NOTE | 2019-08-10 14:13 | NUR ---
DISCHARGE NOTE: SW reviewed chart and spoke with nursing and attending physician. Pt is requesting to discharge home today. Discharge orders written. Pt and s/o checked on cost of medications at [facility] and meds were over $600. Pt asked for SW to vouch for meds in [facility] outpatient pharmacy. Pt told nursing that she has wound care supplies. SW met with pt and s/o at bedside. Pt now stating that she will have her meds filled at [facility]. All meds except her insulin. SW offered to fill insulin script at [facility]. Pt declines stating she does not want to wait. SW offered to arrange [facility] visit if [facility] is able to accept. Pt and s/o agreeable. SW encouraged pt to follow up [place] [facility] Pt's s/o to provide transportation home. search planner to fax referral to [facility]. KAY notified liaison of new referral and request for [facility] visit. Awaiting response at this time. No additional SW needs identified at this time, but is available to assist should needs arise.
--- NOTE | 2019-08-10 14:13 | NUR ---
PATIENT REFERRAL FAXED TO [facility] FOR POSSIBLE WOUND CARE KIERRA VISITS. CALL PLACED TO [facility] LIAISON TO NOTIFY PER UNIT SW. FOLLOWING.
--- NOTE | 2019-08-10 14:24 | NUR ---
PT WOUND DRESSING COMPLETED. AGUILERA CATHETER REMOVED. IV REMOVED. DISCHARGE INSTRUCTION AND WOUND EDUCATION DONE WITH PT AND . PT BELONGINGS WITH PT. PT LEFT VIA WHEELCHAIR WITH DIRECTOR OF CATERING. DRIVING HER HOME.
== END 2019-08-10 14:20 | disposition home or self-care (01) | DRG 853 ==
LOC: ER 08:50 → 3W 10:48 → EROBS 10:48 → 4S 16:29 → 3W 17:05
PROVIDERS: Emergency Medicine; Hospitalist; Internal Medicine; Internal Medicine Nephrology; Nurse Practitioner; ADMIT Hospitalist
PROC: 0JB90ZZ Excision of Buttock Subcutaneous Tissue and Fascia, Open Approach (ICD-10-PCS; principal; 2019-08-06)
DX: A41.9 Sepsis, unspecified organism (principal); E43 Unspecified severe protein-calorie malnutrition; L02.31 Cutaneous abscess of buttock; N17.9 Acute kidney failure, unspecified; L02.214 Cutaneous abscess of groin; N39.0 Urinary tract infection, site not specified; N18.9 Chronic kidney disease, unspecified; E11.65 Type 2 diabetes mellitus with hyperglycemia; E78.5 Hyperlipidemia, unspecified; F17.210 Nicotine dependence, cigarettes, uncomplicated; J45.909 Unspecified asthma, uncomplicated; E11.22 Type 2 diabetes mellitus with diabetic chronic kidney disease; R33.9 Retention of urine, unspecified; E66.9 Obesity, unspecified; E11.42 Type 2 diabetes mellitus with diabetic polyneuropathy; I25.10 Atherosclerotic heart disease of native coronary artery without angina pectoris; I25.2 Old myocardial infarction; Z81.1 Family history of alcohol abuse and dependence; Z83.3 Family history of diabetes mellitus; Z82.49 Family history of ischemic heart disease and other diseases of the circulatory system; Z68.33 Body mass index [BMI] 33.0-33.9, adult
CPT/HCPCS: 10080; 10879; 50010; 50101; 50386; 62110; 62900; 70005